=== PATIENT | male | born 1990 | race Hispanic/Latino ===

== ENCOUNTER → 2018-11-02 | Day surgery (SDC) | payer SELFPAY ==
[2018-10-27 10:34] LABS: EOSINOPHILS % 4.1 % (0.0-6.0); HEMATOCRIT 45.4 % (38.2-49.6); HEMOGLOBIN 15.2 g/dL (14.0-18.0); LYMPHOCYTES % 35.5 % (18.0-39.1); MEAN CORPUSCULAR HEMOGLOBIN 29.7 pg (28-32); MEAN CORPUSCULAR HGB CONC 33.5 g/dL (31-35); MEAN CORPUSCULAR VOLUME 88.7 fL (81-99); MONOCYTES % 7.9 % (4.4-11.3); NEUTROPHILS % 51.7 % (38.7-80.0); PLATELET COUNT 289 x10e3/uL (140-360); RED BLOOD COUNT 5.12 x10e6/uL (4.3-5.7); RED CELL DISTRIBUTION WIDTH 11.9 % (11.7-14.4)
[2018-10-27 10:35] LABS: BASOPHILS % 0.5 % (0.0-1.0); EOSINOPHILS # (AUTO) 0.3 (0.0-0.4); LYMPHOCYTES # (AUTO) 2.7 (1.0-3.2); MONOCYTES # (AUTO) 0.6 (0.2-0.8)
[2018-10-27 10:43] LABS: ALANINE AMINOTRANSFERASE 21 IU/L (0-55); ALBUMIN 4.2 g/dL (3.5-5.0); ALBUMIN/GLOBULIN RATIO 1.4 (0.8-2.0); ALKALINE PHOSPHATASE 73 IU/L (40-150); ANION GAP 14.7 mmol/L (8-16); BLOOD UREA NITROGEN 10 mg/dL (7-26); BUN/CREATININE RATIO 10 (6-25); CALCIUM 9.4 mg/dL (8.4-10.2); CARBON DIOXIDE 26 mmol/L (22-29); CHLORIDE 104 mmol/L (98-107); CREATININE, SERUM 0.97 mg/dL (0.72-1.25); EST GLOMERULAR FILTRATION RATE > 60 ML/MIN (60-); GLUCOSE 96 mg/dL (74-118); POTASSIUM 3.7 mmol/L (3.5-5.1); SODIUM 141 mmol/L (136-145)
[~2018-11-02] MED LIST: ACETAMINOPHEN 1000 MG/100 ML 100 ML IV ONE; BUPIVACAINE 0.25% 30ML SDV INJ ONE; DEXAMETHASONE SOD PHOS INJ 4 MG/ML VIAL ONE; FENTANYL CITRATE/PF 100MCG/2 ML INJ ONE; GLYCOPYRROLATE INJ 1MG/ 5 ML SYR ONE; LEVOFLOXACIN 500MG/D5W 100ML 100 ML IV ONE; LIDOCAINE HCL 2% LOCAL INJ 5 ML SDV VIAL INJ ONE; MIDAZOLAM HCL 2 MG/2 ML VIAL ONE; MUPIROCIN 2% OINT 22 GM TUBE ONE; ONDANSETRON HCL INJ 2MG/ML 2ML 2 MG/ML VIAL ONE; PROPOFOL IV EMULSION 10 MG/ML 20 ML VIAL ONE; SEVOFLURANE INHAL SOLN 250 ML PEN BTL ONE
[2018-11-02 12:00] VITALS: BP 126/82
--- NOTE | 2018-11-02 13:18 | Operative Report ---
DATE OF PROCEDURE: November 02, 2018 PREOPERATIVE DIAGNOSES 1. Severe phimosis. 2. History of balanitis. 3. Penile lesion. POSTOPERATIVE DIAGNOSES 1. Human papillomavirus infection. 2. Severe phimosis. 3. Chronic balanitis. OPERATION PERFORMED 1. Glans penis biopsy with frozen section. 2. Circumcision. 3. Fulguration of the penile lesions--condylomas. ANESTHESIA: Anesthesiology staff. Anesthesia is general and penile block. FINDINGS: The patient has severe phimosis. The skin had to be cut in the midline dorsally to be able to see the head of the penis. The head of the penis had a lesion which was biopsied. Frozen section revealed HPV infection but not cancer. Winkler catheter was placed in, and procedure was done with fulguration of penile lesions as well. PROCEDURE: With the patient under satisfactory general anesthesia, the patient was placed in the supine position on the operating table. Genitalia were shaved with jaky, prepped with Betadine soap and solution, and draped in the usual manner. At this point, the area around the meatus where there was a lesion, this lesion was biopsied using a knife. After obtaining the biopsy, it was sent in for frozen section. At this point, local anesthetic 10 mL were injected at the penoscrotal junction circumferentially around the base of the penis, and 10 mL were placed just at the symphysis pubis at the dorsal bundle to block the nerve of the glans penis. Once that was done, then a circumferential incision was made around the penis distal to the coronal sulcus. Exposure of the coronal sulcus was somewhat difficult because of the scarring and the adhesions to the glans penis. Finally, after careful dissection with tenotomy scissors, the coronal sulcus was exposed. A circumferential incision was made with a number 10 blade to cut the excess skin. Bleeding points were electrocoagulated. That skin was also sent in for pathological specimen. All bleeding points were electrocoagulated. At this point, the pathology report was called in. 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 At this point, the skin edges were approximated using a running 4-0 chromic catgut. The lesions on the glans penis were then electrofulgurated. Once that was done, Bactroban cream was then applied to the incision and to the glans penis. At this point, Vaseline gauze was placed around the incision, and the Winkler catheter was placed in the urethral meatus. A Onesimo was then applied on top of the Vaseline gauze. After that, a Coban tape was also applied to hold the dressing in place. At this point, the patient was taken to the recovery room in satisfactory condition. Estimated blood loss was 5 to 10 mL. Sponge, needle count and instrument count were correct. DISCHARGE INSTRUCTIONS: I discussed the case with the patient's mother. The patient will be returning to my office in the morning at 9:30 to remove the dressing. Since it is a condylomatous lesion, I will order an HIV test on this patient as well, and we will be discussing that with him when he comes to the office. He was given tramadol for pain. He was given also a leg bag and an overnight bag and was told by the nurses on how to change the bags and how to empty. Job#: [id number]
== END | disposition home or self-care (01) ==
LOC: OR 08:03 → EDSEX 10:00
PROVIDERS: ATTEND Urology
DX: N47.1 Phimosis (principal); A63.0 Anogenital (venereal) warts; N48.0 Leukoplakia of penis; Z88.0 Allergy status to penicillin; Z01.812 Encounter for preprocedural laboratory examination
CPT/HCPCS: 11106; 36415; 54055; 54161; 80053; 85025; 87086; 88304; 88305; 88312; 88331; J0131; J1100; J1956; J2001; J2250; J2405; J2704; J3490